=== PATIENT | female | born 1955 | race Caucasian/White ===

== ENCOUNTER → 2017-12-15 | Outpatient (CLI) | payer OTHER ==
[~2017-12-15] MED LIST: ALBU90OI INH; DICL25ER PO; ESTRTP VAG; HYDCHL25 PO; Hair, Skin & N1 EACH PO; LISI5 PO; LORA10 PO; MELO7.5 PO; TIOT18 INH
[2017-12-16 15:08] LABS: HPV 16 Negative (Negative); HPV 18 Negative (Negative); HPV OTHER HR TYPES Negative (Negative)
== END ==
LOC: LAB SHORT 11:50 → LAB 11:50
PROVIDERS: Registered Nurse Community Health
DX: Z01.419 Encounter for gynecological examination (general) (routine) without abnormal findings (principal); Z12.11 Encounter for screening for malignant neoplasm of colon; Z78.0 Asymptomatic menopausal state
CPT/HCPCS: 87624; G0123

== ENCOUNTER → 2024-01-20 | Outpatient (CLI) | payer MEDICARE, OTHER | LOC: LAB SHORT 18:24 → LAB 18:24 | DX: R30.0 Dysuria (principal) | CPT/HCPCS: 87086 ==

== ENCOUNTER → 2024-04-12 | Outpatient (CLI) | payer MEDICARE, OTHER ==
[2024-04-12 19:07] LABS: BASOPHILS ABSOLUTE AUTO 0.05 K/mm3 (0.00-0.23); BASOPHILS PERCENT AUTO 1 % (0-2); EOSINOPHILS ABSOLUTE AUTO 0.02 K/mm3 (0.00-0.68); EOSINOPHILS PERCENT AUTO 0 % (0-6); IMMATURE GRAN ABSOLUTE AUTO 0.01 K/mm3 (0.00-0.10); IMMATURE GRAN PERCENT AUTO 0 % (0-1); LYMPHOCYTES ABSOLUTE AUTO 1.74 K/mm3 (0.84-5.20); LYMPHOCYTES PERCENT AUTO 29 % (21-46); MONOCYTES ABSOLUTE AUTO 0.41 K/mm3 (0.16-1.47); MONOCYTES PERCENT AUTO 7 % (4-13); Mean Corpuscular HGB 31.9 pg (26.0-34.0); Mean Corpuscular HGB Conc 34.1 g/dL (31.5-36.5); Mean Corpuscular Volume 94 fL (80-100); Mean Platelet Volume 9.3 fL (9.1-12.4); NEUTROPHILS ABSOLUTE AUTO 3.84 K/mm3 (1.96-9.15); NEUTROPHILS PERCENT AUTO 63 % (41-73); Platelet Count 338 K/mm3 (150-400); RDW Coefficient Variation 13.3 % (11.7-14.2); RDW Standard Deviation 45.9 fL (35.1-46.3); White Blood Cell Count 6.07 K/mm3 (4.00-11.30)
[2024-04-12 21:06] LABS: Alanine Aminotransfer (ALT/SGP 14 U/L (12-78); Albumin, Blood 4.1 g/dL (3.4-5.0); Albumin/Globulin Ratio 1.1 (0.8-1.8); Alk Phos 55 U/L (50-136); Anion Gap 10 mmol/L (3-11); Aspartate Aminotrans (AST/SGOT 19 U/L (12-37); Bilirubin, Total 0.8 mg/dL (0.1-1.0); Blood Urea Nitrogen 14 mg/dL (8-24); Bun/Creatinine Ratio 28.4 (12.0-20.0); CHOL/HDL RATIO 2.1; CO2, Blood 27 mmol/L (21-32); Calcium, Blood 9.2 mg/dL (8.5-10.1); Chloride, Blood 103 mmol/L (98-108); Cholesterol 215 mg/dL (50-200); Creatinine, Blood 0.49 mg/dL (0.40-1.00); Globulin, Blood 3.7 g/dL (2.2-4.0); Glomerular Filtration Rate 103 (60-); Glucose, Blood 104 mg/dL (70-99); HDL Cholesterol 102 mg/dL (>39); Low Density Lipoprotein Chol 102 mg/dL (0-110); Potassium, Blood 3.9 mmol/L (3.5-5.5); Sodium, Blood 136 mmol/L (136-145); Total Protein, Blood 7.8 g/dL (6.4-8.2); Triglycerides 55 mg/dL (30-160); Very Low Density Lipoprot Chol 11 mg/dL (6-32)
[2024-04-12 21:12] LABS: Thyroid Stimulating Hormone 0.439 uIU/mL (0.360-4.800)
== END ==
LOC: LAB 18:17 → LAB SHORT 18:17
PROVIDERS: Nurse Practitioner Family
DX: Z13.220 Encounter for screening for lipoid disorders (principal); I10 Essential (primary) hypertension; E55.9 Vitamin D deficiency, unspecified
CPT/HCPCS: 80053; 80061; 82306; 84443; 85025